=== PATIENT | female | born 1990 | race African-American/Black ===

== ENCOUNTER 2019-04-09 20:59 | Emergency (ER) | payer MEDICAID, OTHER ==
[~2019-04-09] VITALS: Ht 165.1 cm; Wt 74.8 kg
[~2019-04-09 20:59] MED LIST: BISA5TAB13 PO; NAPR-1192 PO; SUMA100T16 PO
--- NOTE | 2019-04-09 23:20 | NUR ---
Patient discharged to home in stable conditon. Written and verbal after care instructions given. Patient verbalizes understanding of instructions. Patient ambulated out of ER with stable gait.
[2019-04-09 23:21] VITALS: BP 109/76
== END 2019-04-09 23:21 | disposition home or self-care (01) ==
LOC: ER 21:01
DX: S01.01XA Laceration without foreign body of scalp, initial encounter (principal); F07.81 Postconcussional syndrome; E03.9 Hypothyroidism, unspecified; Z79.899 Other long term (current) drug therapy; W22.8XXA Striking against or struck by other objects, initial encounter; Y93.89 Activity, other specified; Y92.89 Other specified places as the place of occurrence of the external cause; Y99.8 Other external cause status
CPT/HCPCS: 70450; A4663

== ENCOUNTER 2021-02-15 21:19 | Emergency (ER) | payer OTHER ==
[~2021-02-15] VITALS: Ht 165.1 cm; Wt 77.1 kg
--- NOTE | 2021-02-15 21:28 | NUR ---
Pt ambulated to ER with c/o migraine and nause that started on Friday. PL:01/11. A/O x4, no SOB or labored breathing. Denies CP/pressure.
--- NOTE | 2021-02-15 21:35 | NUR ---
Dr. Kraus at bedside, MSE in progress.
[2021-02-15] MEDS ORDERED: KETOROLAC TROMETHAMINE 30 MG INJ IVP ONE (21:45)
[2021-02-15] MEDS ORDERED: METOCLOPRAMIDE HCL 10 MG/2 ML VIAL IV ONE (21:45)
[2021-02-15] MEDS ORDERED: IV NS 1000 ML 1,000 ML IV ONE (21:45)
[2021-02-15] MEDS ORDERED: diphenhydrAMINE 50 MG/1 ML VIAL IV ONE (21:45)
[2021-02-15] MEDS ORDERED: KETOROLAC TROMETHAMINE 30 MG INJ ONE (22:06)
[2021-02-15] MEDS ORDERED: METOCLOPRAMIDE HCL 10 MG/2 ML VIAL ONE (22:06)
[2021-02-15] MEDS ORDERED: diphenhydrAMINE 50 MG/1 ML VIAL ONE (22:06)
[2021-02-16] MEDS ORDERED: METO-295 PO (00:02)
[2021-02-16] MEDS ORDERED: NAPR-1164 PO (00:02)
[2021-02-16] MEDS ORDERED: DIPH25CA83 PO (00:02)
[2021-02-16 00:14] VITALS: BP 109/73
--- NOTE | 2021-02-16 00:14 | NUR ---
Patient discharged to home in stable condition. Denies any pain/discomfort at this time. Written and verbal after care instructions given. Patient verbalizes understanding of instructions. Stressed follow up or return to ER for worsening s/s. Steady gait.
== END 2021-02-16 00:15 | disposition home or self-care (01) ==
LOC: ER 21:25
DX: G43.909 Migraine, unspecified, not intractable, without status migrainosus (principal); E03.9 Hypothyroidism, unspecified
CPT/HCPCS: 96361; 96374; 96375; 99284; J1200; J1885; J2765; A4663; J7030